=== PATIENT | male | born 1965 | race Caucasian/White ===

== ENCOUNTER 2019-06-11 23:27 | Emergency (ER) | payer MEDICAID ==
[~2019-06-11] VITALS: Ht 154.9 cm; Wt 91.0 kg
[~2019-06-11 23:27] MED LIST: CEPH-443 PO; HYDR-4011 PO; NAPR-985 PO
[2019-06-11 23:39] VITALS: Ht 154.9 cm; Wt 91.0 kg
[2019-06-12] MEDS ORDERED: SOD CHLORIDE 0.9% 1,000 ML IV STA (00:12)
[2019-06-12] MEDS ORDERED: KETOROLAC 30 MG INJ IV STA (00:12)
[2019-06-12] MEDS ORDERED: ONDANSETRON 4 MG INJ IV STA (00:12)
[2019-06-12] MEDS ORDERED: CEFTRIAXONE 1 GM/50 ML (PMX) 50 ML IVPB ONE (02:30)
[2019-06-12 03:32] VITALS: BP 104/57; PULSE 80; RESP 20
== END 2019-06-12 03:40 | disposition home or self-care (01) ==
LOC: FTE 23:27
DX: R39.89 Other symptoms and signs involving the genitourinary system (principal); I10 Essential (primary) hypertension; R10.9 Unspecified abdominal pain
CPT/HCPCS: 74176; 80053; 81001; 83690; 85025; 85610; 85730; J0696; J1885; J2405; J7030; 36415; 96361; 96365; 96375